=== PATIENT | male | born 1980 ===

== ENCOUNTER 2017-12-15 14:19 | Emergency (ER) | payer OTHER ==
[2017-12-15 14:58] VITALS: BP 145/83; PULSE 98; RESP 15; TEMP 98.2; O2SAT 99
--- NOTE | 2017-12-15 16:22 | ED PDOC ---
Upper Extremity Pain/Injury Time Seen by Provider: 12/15/17 14:46 Chief Complaint (Nursing): Upper Extremity Problem/Injury Chief Complaint (Provider): Shoulder injury History Per: Patient History/Exam Limitations: no limitations Onset/Duration Of Symptoms: Hrs (since noon) Current Symptoms Are (Timing): Still Present Quality: "Pain" Exacerbating Factor(s): Movement Additional History Per: Family Additional Complaint(s): 37 year old male presents to the ED complaining of right shoulder pain onset at noon today after he slipped in the tub while taking a shower. Reports he hit his shoulder on the floor. Pain is localized to the shoulder and worsens with movement. Denies hitting his head or loss of consciousness. Patient also did not take any medication for the pain prior to arrival. Patient reports no history of shoulder injury. PMD: Provider KATYA Past Medical History Reviewed: Historical Data, Nursing Documentation, Vital Signs Vital Signs: Last Vital Signs Temp 98.2 F 12/15/17 14:54 Pulse 98 H 12/15/17 14:54 Resp 15 12/15/17 14:54 BP 145/83 12/15/17 14:54 Pulse Ox 99 12/15/17 14:54 - Medical History PMH: No Chronic Diseases - Surgical History Surgical History: No Surg Hx - Family History Family History: States: Unknown Family Hx - Social History Current smoker - smoking cessation education provided: No Alcohol: Social Drugs: Denies - Home Medications Home Medications: Ambulatory Orders Medication Instructions Recorded Naproxen 500 mg PO Q12 #20 tab 12/15/17 - Allergies Allergies/Adverse Reactions: Allergies Allergy/AdvReac Type Severity Reaction Status Date / Time No Known Allergies Allergy Verified 12/15/17 14:54 Review of Systems ROS Statement: Except As Marked, All Systems Reviewed And Found Negative Musculoskeletal: Positive for: Shoulder Pain (right) Neurological: Negative for: Other (loss of consciousness; head injury) Physical Exam - Reviewed Nursing Documentation Reviewed: Yes Vital Signs Reviewed: Yes - Physical Exam Appears: Positive for: Well, Non-toxic, No Acute Distress Head Exam: Positive for: ATRAUMATIC, NORMOCEPHALIC Skin: Positive for: Warm, Dry Eye Exam: Positive for: EOMI, PERRL Neck: Positive for: Painless ROM, Supple Cardiovascular/Chest: Positive for: Regular Rate, Rhythm Respiratory: Positive for: Normal Breath Sounds. Negative for: Decreased Breath Sounds, Accessory Muscle Use, Respiratory Distress Gastrointestinal/Abdominal: Positive for: Soft. 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 Negative for: Deformity, Swelling ( or ecchymosis ) Neurologic/Psych: Positive for: Alert, Oriented (x3), Gait (steady in ED) - ECG O2 Sat by Pulse Oximetry: 99 (RA) Pulse Ox Interpretation: Normal Medical Decision Making Medical Decision Making: Time: 1513 Impression: acute shoulder pain status post fall Initial Plan: --Toradol 30mg --Ultram 50mg (Patient states he is not driving) --Right shoulder XRs --Reevaluation Time:163 FINDINGS: BONES: Normal. No fracture. JOINTS: Glenohumeral and acromioclavicular joints preserved. No significant osteoarthritis SOFT TISSUES: Normal. OTHER FINDINGS: None. IMPRESSION: Normal radiographs of the right shoulder. Time:164 On re-evaluation, patient reports improvement of symptoms with decreased pain and increased ROM. On exam, patient remains AAOx3, in no acute distress. On exam , neck is supple, lungs CTA, cardiac RRR, abdomen is soft and non-tender, neuro exam shows no focal findings. (-) distal NV deficit. Diagnostic results d/w the patient in great detail. Dx of acute shoulder pain/ contusion s/p fall d/w the patient. Based on history, exam and diagnostic results plan will be for discharge and outpatient follow up. Advised to follow up with primary care physician in 1-2 days without fail. Advised to take medication as prescribed. Return to the emergency room at any time for any new or worsening symptoms. Patient states he fully agrees with and understands discharge instructions. States that he agrees with the plan and disposition. Verbalized and repeated discharge instructions and plan. I have given the patient opportunity to ask any additional questions. Documented by Staci Patel acting as a scribe for Tanvir Gillis PA-C. All medical record entries made by the Scribe were at my direction and personally dictated by me. I have reviewed the chart and agree that the record accurately reflects my personal performance of the history, physical exam, medical decision making, and the department course for this patient. I have also personally directed, reviewed, and agree with the discharge instructions and disposition. Disposition - Clinical Impression Clinical Impression: Shoulder pain, acute, Shoulder contusion - Patient ED Disposition Is Patient to be Admitted: No Counseled Patient/Family Regarding: Studies Performed, Diagnosis, Need For Followup, Rx Given - Disposition Disposition: Routine/Home Disposition Time: 16:43 Condition: IMPROVED Prescriptions: Naproxen 500 mg PO Q12 #20 tab Instructions: Contusion (DC), Active Range of Motion Exercises, Neck and Shoulders, Shoulder Pain (DC) Forms: [employer] (Anguillan), [facility] ED School/Work Excuse Print Language: FAROESE - POA Present On Arrival: None
--- NOTE | 2017-12-15 16:41 | RAD ---
PROCEDURE: Radiographs of the Right Shoulder HISTORY: Status post fall COMPARISON: No prior. FINDINGS: BONES: Normal. No fracture. JOINTS: Glenohumeral and acromioclavicular joints preserved. No significant osteoarthritis. SOFT TISSUES: Normal. OTHER FINDINGS: None. IMPRESSION: Normal radiographs of the right shoulder.
== END 2017-12-15 16:45 | disposition home or self-care (01) ==
LOC: H.ER 14:19
DX: S40.011A Contusion of right shoulder, initial encounter (principal); W19.XXXA Unspecified fall, initial encounter; Y92.002 Bathroom of unspecified non-institutional (private) residence as the place of occurrence of the external cause
CPT/HCPCS: 73030; 96372; 99283; J1885

== ENCOUNTER 2017-12-22 13:31 | Emergency (ER) | payer OTHER ==
[2017-12-22 13:37] VITALS: BMI 33.5
[2017-12-22] MEDS ORDERED: Oxycodone/Acetaminophen 5/325 mg Tab PO STA ×2 (14:30→15:27)
[2017-12-22] MEDS ORDERED: Oxycodone/Acetaminophen 5/325 mg Tab ONE (15:25)
--- NOTE | 2017-12-22 15:29 | ED PDOC ---
Upper Extremity Pain/Injury Time Seen by Provider: 12/22/17 13:40 Chief Complaint (Nursing): Upper Extremity Problem/Injury Chief Complaint (Provider): Right Shoulder Pain History Per: Patient History/Exam Limitations: no limitations Onset/Duration Of Symptoms: Days Quality: "Pain" Additional Complaint(s): 37 year old male presents to the emergency department post slip and fall complaining of right shoulder pain. The patient reports that he was seen here in the ER after he fell and was given medication but the pain still persists. Past Medical History Reviewed: Historical Data, Nursing Documentation, Vital Signs Vital Signs: Last Vital Signs Temp 97.7 F 12/22/17 13:53 Pulse 78 12/22/17 13:53 Resp 20 12/22/17 13:53 BP 136/85 12/22/17 13:37 Pulse Ox 96 12/22/17 13:53 - Medical History PMH: No Chronic Diseases - Surgical History Surgical History: No Surg Hx - Family History Family History: States: Unknown Family Hx - Living Arrangements Living Arrangements: With Family - Social History Current smoker - smoking cessation education provided: No Ex-Smoker (has not smoked in the last 12 months): No Alcohol: None Drugs: Denies - Home Medications Home Medications: Ambulatory Orders Medication Instructions Recorded Naproxen 500 mg PO Q12 #20 tab 12/15/17 oxyCODONE/Acetaminophen [Percocet 1 - 2 tab PO Q6 PRN #12 tab 12/22/17 5/325 mg Tab] - Allergies Allergies/Adverse Reactions: Allergies Allergy/AdvReac Type Severity Reaction Status Date / Time No Known Allergies Allergy Verified 12/15/17 14:54 Review of Systems ROS Statement: Except As Marked, All Systems Reviewed And Found Negative Musculoskeletal: Positive for: Shoulder Pain (right shoulder pain) Neurological: Negative for: Weakness, Numbness Physical Exam - Reviewed Nursing Documentation Reviewed: Yes Vital Signs Reviewed: Yes - Physical Exam Appears: Positive for: Well, Non-toxic, No Acute Distress Head Exam: Positive for: ATRAUMATIC, NORMAL INSPECTION, NORMOCEPHALIC Skin: Positive for: Normal Color, Warm, Dry. Negative for: Rash Eye Exam: Positive for: Normal appearance, EOMI, PERRL Neck: Positive for: Normal (no cervical midline tenderness), Painless ROM, Supple Cardiovascular/Chest: Positive for: Regular Rate, Rhythm, Chest Non Tender, Other (no ecchymosis or hematoma noted). Negative for: Tachycardia Respiratory: Positive for: Normal Breath Sounds. Negative for: Rhonchi, Wheezing, Respiratory Distress Pulses-Radial (R): 2+ Gastrointestinal/Abdominal: Positive for: Normal Exam, Soft. Negative for: Tenderness Back: Positive for: Normal Inspection Extremity: Positive for: Tenderness (moderate right lateral shoulder tenderness) , Capillary Refill (cap refills less than 2 second). Negative for: Deformity, Swelling Neurologic/Psych: Positive for: Alert, Oriented - Laboratory Results Result Diagrams: 12/22/17 21:09 12/22/17 21:09 - ECG ECG: Positive for: Interpreted By Me ECG Rhythm: Positive for: Sinus Bradycardia. Negative for: ST/T Changes Rate: 57 O2 Sat by Pulse Oximetry: 96 (RA) Pulse Ox Interpretation: Normal Medical Decision Making Medical Decision Makin Initial Impression 37 year old male presenting with right shoulder pain Initial Plan: * CT EXT Upper w/o Contrast * Toradol 30mg IM * Percocet 2 tab PO * Reevaluation 1806 EXAM: CT Right Upper Extremity Without Intravenous Contrast, Shoulder CLINICAL HISTORY: 37 years old, male; Injury or trauma; Fall; Initial encounter; Laceration; Shoulder; Right; Injury date: 1 week ago; Additional info: Trauma; Fall 1 week ago; Xray nml TECHNIQUE: Axial computed tomography images of the right shoulder without intravenous contrast. All CT scans at this facility use one or more dose reduction techniques, viz.: automated exposure control; ma/kV adjustment per patient size (including targeted exams where dose is matched to indication; i.e. head); or iterative reconstruction technique. Coronal and sagittal reformatted images were created and reviewed. COMPARISON: No relevant prior studies available. FINDINGS: Bones/joints: There is an acute displaced fracture involving the anterior aspect of the right first rib. No dislocation. Soft tissues: Unremarkable. IMPRESSION: 1. There is an acute displaced fracture involving the anterior aspect of the right first rib. 2. No other acute fracture or dislocation and no radiopaque foreign body CT results discussed with Dr. Casillas who recommends CT spine and CT chest both without contrast. 1849 EXAM: CT Cervical Spine Without Intravenous Contrast CLINICAL HISTORY: 37 years old, male; Injury or trauma; Fall; Initial encounter; Blunt trauma; Additional info: 1st rib fracture TECHNIQUE: Axial computed tomography images of the cervical spine without intravenous contrast. All CT scans at this facility use one or more dose reduction techniques, viz.: automated exposure control; ma/kV adjustment per patient size (including targeted exams where dose is matched to indication; i.e. head); or iterative reconstruction technique. Coronal and sagittal reformatted images were created and reviewed. COMPARISON: No relevant prior studies available. FINDINGS: Vertebrae: There is chronic central compression deformity of the C3 vertebral body, possibly congenital. Discs/spinal canal/neural foramina: No acute findings. No spinal canal stenosis. Other bones/joints: There is an acute displaced fracture of the anterior aspect of the right first rib. Soft tissues: Unremarkable. Lung apices: Unremarkable as visualized. IMPRESSION: 1. No acute cervical spine fracture. 2. There is an acute displaced fracture of the anterior aspect of the right first rib. 1954 EXAM: CT Chest Without Intravenous Contrast EXAM DATE/TIME: 12/22/2017 6:23 PM CLINICAL HISTORY: 37 years old, male; Injury or trauma; Injury history: Trauma, 1st rib fracture; Initial encounter; Fracture, traumatic; Additional info: 1st rib FX TECHNIQUE: Axial computed tomography images of the chest without intravenous contrast. All CT scans at this facility use one or more dose reduction techniques, viz.: automated exposure control; ma/kV adjustment per patient size (including targeted exams where dose is matched to indication; i.e. head); or iterative reconstruction technique. Sagittal and coronal reformatted images were created and reviewed. MIP images were created and reviewed. COMPARISON: No prior CT Chest for comparison. FINDINGS: Limitations: The absence of IV contrast material limits evaluation for acute vascular and solid organ injuries. Lungs: Patchy airspace opacity in both lower lobes and to a lesser extent in the lingula. Several 4 mm and smaller noncalcified pulmonary nodules. The central airways are patent. Pleural space: No pleural fluid collection. No pneumothorax. Heart: No cardiomegaly. No pericardial fluid collection. Mediastinum: No mediastinal hematoma. Aorta: No evident acute vascular abnormality. No thoracic aortic aneurysm. Lymph nodes: No enlarged thoracic lymph nodes by CT criteria. Bones/joints: Acute, mildly displaced fracture of the anterior right 1st rib. Acute, nondisplaced fracture of the anterior right 2nd rib. Anatomic alignment of the imaged spine. Soft tissues: No acute findings. Upper abdomen: No evident acute abnormality in the imaged upper abdomen. IMPRESSION: 1. Acute fractures of the anterior right 1st and 2nd ribs. 2. Patchy airspace opacity in both lower lobes and to a lesser extent in the lingula is likely atelectasis and/or parenchymal scarring but aspiration or pulmonary contusion(s ) are not excluded. 3. Several 4 mm and smaller noncalcified pulmonary nodules. Follow up per institution protocol. 2035 Case d/w Dr. Jj, thoracic surgery, who recommends CTA chest to r/o subclavian artery injury. CTA chest, labs, ekg ordered. [address] Chavez, surgery resident, in ED who spoke with Dr. Maciel. As per Dr. Maciel if CTA is normal pt. can be dc'd with f/u. 2301 CTA chest: R 1st rib fx; no subclavian artery injury Results d/w Dr. Chavez and states pt. can be dc'd. Results d/w patient. Advised to f/u with [facility] for further evaluation. Documented by Jalyn Urbina acting as a scribe for Santo Kent PA-C. All medical record entries made by the Scribe were at my direction and personally dictated by me. I have reviewed the chart and agree that the record accurately reflects my personal performance of the history, physical exam, medical decision making, and the department course for this patient. I have also personally directed, reviewed, and agree with the discharge instructions and disposition. Disposition - Clinical Impression Clinical Impression: Ribs, multiple fractures - Patient ED Disposition Is Patient to be Admitted: No - Disposition Referrals: [facility] [Outside] [facility] [Outside] Disposition: Routine/Home Disposition Time: 23:03 Condition: IMPROVED Additional Instructions: Follow up with [facility] for further evaluation. Return to ED if symptoms worsen. Prescriptions: oxyCODONE/Acetaminophen [Percocet 5/325 mg Tab] 1 - 2 tab PO Q6 PRN #12 tab PRN Reason: pain Instructions: Rib Fracture (DC), How to Use an Incentive Spirometer Forms: [employer] (Ghanaian), [facility] ED School/Work Excuse Print Language: JORDANIAN
[2017-12-22 20:03] VITALS: TEMP 98
[2017-12-22] MEDS ORDERED: Iodixanol 320 MG/ML 100 ML BOTTLE IV ONE (21:10)
--- NOTE | 2017-12-22 21:16 | CP.PCM.CON ---
History of Present Illness - History of Present Illness History of Present Illness: SURGERY CONSULT NOTE FOR DR. CR 37M presents with right shoulder pain that has been ongoing for one week. Patient states he fell last saturday and landed on his right shoulder. He was seen at that time and sent home with pain medication. He returns because pain is not improving. He states the pain keeps him up at night. He denies any chest pain or shortness of breath. Denies loss of consciousness at the time. PMH: denies PSH: denies Social: denies tobacco, admits to social alcohol use, denies illicit drugs Allergies: NKDA Past Patient History - Past Social History Alcohol: None Drugs: Denies - PSYCHIATRIC Hx Substance Use: No Meds Allergies/Adverse Reactions: Allergies Allergy/AdvReac Type Severity Reaction Status Date / Time No Known Allergies Allergy Verified 12/15/17 14:54 Physical Exam - Constitutional Appears: Well, Non-toxic, No Acute Distress - Head Exam Head Exam: ATRAUMATIC - Eye Exam Eye Exam: EOMI, PERRL - ENT Exam ENT Exam: Mucous Membranes Moist - Respiratory Exam Respiratory Exam: Clear to Auscultation Bilateral, NORMAL BREATHING PATTERN - Cardiovascular Exam Cardiovascular Exam: REGULAR RHYTHM, +S1, +S2 - GI/Abdominal Exam GI & Abdominal Exam: Soft. absent: Distended, Firm, Guarding, Rebound, Rigid, Tenderness - Extremities Exam Additional comments: full range of motion in right shoulder. Pain on adduction. Pain on palpation of right superior ribs Palpable pulses in the Upper/lower extremities - Neurological Exam Neurological exam: Alert, Oriented x3 - Psychiatric Exam Psychiatric exam: Normal Affect, Normal Mood - Skin Skin Exam: Dry, Intact, Normal Color, Warm Results - Vital Signs Recent Vital Signs: Last Vital Signs Temp 98 F 12/22/17 20:03 Pulse 63 12/22/17 20:03 Resp 18 12/22/17 20:03 BP 113/68 12/22/17 20:03 Pulse Ox 96 12/22/17 20:15 - Labs Result Diagrams: 12/22/17 21:09 12/22/17 21:09 Assessment & Plan - Assessment and Plan (Free Text) Assessment: 37M with right rib fractures 1st(mildly displaced) /2nd rib (non-displaced) Plan: Pain control Incentive spirometer CTA chest evaluate vessels DC home if no acute vessel injury Patient needs follow up in Clinic Further recs discuss with Dr. Анна Glez, PGY2
[2017-12-22 21:23] LABS: BASO % 0.7 % (0.0-2.0); EOS # 0.2 K/uL (0.0-0.7); EOS % 3.6 % (0.0-4.0); HEMOGLOBIN 16.4 g/dL (12.0-18.0); LYMPH # 1.7 K/uL (1.0-4.3); LYMPH % 29.8 % (20.0-40.0); MEAN CELL VOLUME 87.9 fl (80.0-94.0); MEAN CORPUSCULAR HEMOGLOBIN 29.5 pg (27.0-31.0); MEAN CORPUSCULAR HGB CONC 33.5 g/dL (33.0-37.0); MEAN PLATELET VOLUME 9.6 fl (7.2-11.7); MONO # 0.5 K/uL (0.0-0.8); MONO % 7.8 % (0.0-10.0); NEUT # 3.4 K/uL (1.8-7.0); NEUT % 58.1 % (50.0-75.0); NRBC % 0.1 % (0.0-0.0); RBC 5.58 Mil/uL (4.40-5.90); RED CELL DISTRIBUTION WIDTH 13.5 % (11.5-14.5); WHITE BLOOD COUNT 5.8 K/uL (4.8-10.8)
[2017-12-22 21:26] LABS: ALBUMIN 4.2 g/dL (3.5-5.0); ALT/SGPT 40 U/L (21-72); AST/SGOT 25 U/L (17-59); BLOOD UREA NITROGEN 20 mg/dl (9-20); CALCIUM 9.4 mg/dL (8.4-10.2); GFR AFRICAN-AMERICAN > 60; GFR NON-AFRICAN AMERICAN > 60
[2017-12-22 21:36] LABS: INR 1.1 (0.9-1.2); PARTIAL THROMBOPLASTIN TIME 37.9 Seconds (25.6-37.1); PROTHROMBIN TIME 12.4 Seconds (9.8-13.1)
[2017-12-22 23:17] VITALS: BP 138/78; PULSE 76; RESP 20; O2SAT 100
--- NOTE | 2017-12-23 10:24 | CT ---
PROCEDURE: CT upper extremity HISTORY: trauma; fall 1 week ago; xray nml COMPARISON: 12/15/2017 and radiographs of the right shoulder TECHNIQUE: 2.5 mm axial acquisition and display. Coronal and sagittal reconstructions. Dose report (mGy-cm): 332.65 FINDINGS: Preserved glenohumeral relationship. Mild acromioclavicular degenerative changes. Nondisplaced fracture anterior aspect right 1st rib. IMPRESSION: Acute nondisplaced fracture anterior right 1st rib. No underlying pleural or lung abnormalities. Concordant results (preliminary interpretation) provided by [facility]. Procedure Completed: 15:55 Preliminary ([facility]) Report: Dictated and Authenticated: 18:07 Final Interpretation: 10:23 December 23, 2017.
--- NOTE | 2017-12-23 10:34 | CT ---
EXAMINATION: CT CERVICAL SPINE WITHOUT INTRAVENOUS CONTRAST. TECHNIQUE: 2.5 mm axial acquisition and display. Coronal and sagittal reconstructions. Dose report (mGy-cm): 596.04. FINDINGS: Unremarkable cervical vertebral bodies and alignment. Preserved C1-C2 relationship. No pre or para-vertebral abnormalities. Degenerative changes: None. Incidental finding(s): Nondisplaced anterior 1st rib fracture. Impression: Unremarkable CT cervical spine. Incidental finding(s): Anterior right 1st rib fracture adjacent to costo chondral junction. Concordant results (preliminary interpretation) provided by [facility]. Procedure Completed: 18:34 Preliminary ([facility]) Report: Dictated and Authenticated: 18:50 Final Interpretation: 10:32 December 23, 2017.
--- NOTE | 2017-12-23 13:31 | CT ---
PROCEDURE: CT Chest with contrast HISTORY: PLEASE DO ANGIOGRAM AND EVAL SUBCLAVIAN COMPARISON: None. TECHNIQUE: Contiguous axial images were obtained through the chest with intravenous contrast enhancement. Sagittal and coronal reconstructions were performed. Maximum intensity projection (MIP) reconstructed images in the following planes: Axial sagittal and coronal projections IV contrast: 98 cc Visipaque 320. Radiation dose (DLP): 1056.34. MGy-cm. This CT exam was performed using one or more of the following dose reduction techniques: Automated exposure control, adjustment of the mA and/or kV according to patient size, and/or use of iterative reconstruction technique. FINDINGS: LUNGS: Dependent atelectasis at the lung bases. No suspicious pulmonary nodules, masses or infiltrates MEDIASTINUM: Unremarkable thoracic aorta. No aneurysm or dissection. Normal sized heart. Main pulmonary artery unremarkable. No vascular congestion. No lymphadenopathy. PLEURA: No pleural fluid. No pneumothorax. BONES: Fracture anterior aspect right 1st rib. UPPER ABDOMEN: Grossly unremarkable. OTHER FINDINGS: CT angiogram performed with particular attention directed to the right subclavian artery and vein. Known anterior right 1st rib fracture. No evidence of laceration or visible injury to arterial and venous structures in the vicinity of the fracture. IMPRESSION: Unremarkable thoracic angiogram. No abnormalities right subclavian artery or vein. No abnormalities visualized aorta or pulmonary arteries. Additional benign and/or incidental findings described above. Concordant results (preliminary interpretation) provided by [id number]. Procedure Completed: 22:13. Preliminary ([facility]) Report: Dictated and Authenticated: 22:54. Final Interpretation: 13:28. December 23, 2017.
--- NOTE | 2017-12-23 14:06 | CT ---
PROCEDURE: CT Chest without contrast HISTORY: 1st rib fx COMPARISON: None. TECHNIQUE: Contiguous axial images were obtained through the chest without intravenous contrast enhancement. Sagittal and coronal reconstructions were performed. Radiation dose (DLP): 602.39 mGy-cm. This CT exam was performed using one or more of the following dose reduction techniques: Automated exposure control, adjustment of the mA and/or kV according to patient size, and/or use of iterative reconstruction technique. FINDINGS: LUNGS: There is no alveolitis appreciated bilaterally although linear atelectasis or fibrosis in the bilateral lower lobe dependent subsegment as well as the dependent portion of the lingula. A 4 mm noncalcified solid nodule seen in image 64 series 2 with a right middle lobe lateral subsegment. A 4 mm subpleural nodule seen at the medial margins of the minor fissure right middle lobe, image 67. A 3 mm nodule seen in image 72 anteriorly at the right middle lobe with no definite nodules appreciated at the left lung. A 2 mm nodule may be present the right lower lobe in image 70. MEDIASTINUM: Unremarkable thoracic aorta. No aneurysm. Normal sized heart. Main pulmonary artery unremarkable. No vascular congestion. No lymphadenopathy. PLEURA: No pleural fluid. No pneumothorax. BONES: A nondisplaced but comminuted fracture of the anterior 1st rib is appreciated no definitive additional rib fracture appreciable. Local mediastinal fat is unremarkable throughout the upper mediastinum with the thoracic aorta normal in caliber throughout. Cardiac size is also normal. UPPER ABDOMEN: Grossly unremarkable. OTHER FINDINGS: None. IMPRESSION: A nondisplaced comminuted fracture of the right 1st rib is identified without local soft tissue reaction. Please see separate contrast chest CT performed to evaluate right subclavian artery subsequently on 12/22/2017 at 10:13 p.m.. Bilateral linear atelectasis or fibrosis at the bases. Multiple small noncalcified nodules are identified at the right middle lobe as described above for which follow-up chest CT is recommended in 1 year to demonstrate stability of these findings. Lung rads 2 Concordant preliminary report from [facility], 12/22/2017.
--- NOTE | 2017-12-24 11:52 | CARD ---
APPROVED REPORT EKG Measurement Heart [id number] PA [id number] <Conclusion> Sinus bradycardia Nonspecific ST abnormality Abnormal ECG
== END 2017-12-22 23:18 | disposition home or self-care (01) ==
LOC: H.ER 13:31
DX: S22.41XA Multiple fractures of ribs, right side, initial encounter for closed fracture (principal); S19.9XXA Unspecified injury of neck, initial encounter; M25.511 Pain in right shoulder; W19.XXXA Unspecified fall, initial encounter; Y92.89 Other specified places as the place of occurrence of the external cause
CPT/HCPCS: 71250; 71260; 72125; 73200; 80053; 85025; 85610; 85730; 86850; 86900; 93005; 96372; 99285; J1885; Q9967